=== PATIENT | female | born 1995 | race Caucasian/White ===

== ENCOUNTER 2017-12-14 02:59 | Emergency (ER) | payer OTHER ==
[~2017-12-14] VITALS: Ht 165.1 cm; Wt 70.8 kg
[2017-12-14 03:02] VITALS: TEMP 36.8; Ht 165.1 cm; Wt 70.8 kg
[2017-12-14] MEDS ORDERED: SODIUM CHLORIDE 0.9% 1000ML 1,000 ML IV STA (03:22)
[2017-12-14] MEDS ORDERED: DEXAMETHASONE **PF** INJ 10 MG/ML VIAL IV ONE (03:30)
[2017-12-14] MEDS ORDERED: DIAZEPAM INJ 5 MG/ML 2 ML CARP IV ONE (03:30)
[2017-12-14] MEDS ORDERED: DIAZEPAM 5 MG/ML INJ 10ML VIAL ONE (03:30)
[2017-12-14 03:54] LABS: BASO % 0.3 %; BASO ABS # 0.03 K/uL (0-0.2); EOS % 3.5 %; EOS ABS # 0.35 K/uL (0-0.5); HEMATOCRIT 36.9 % (37-47); HEMOGLOBIN 12.3 g/dL (12.0-16.0); IG# 0.01 K/uL (0.00-0.02); LYMPH % 20.2 %; LYMPH ABS # 2.02 K/uL (1.2-3.4); MEAN CELL VOLUME 84.4 fL (80-100); MEAN CORPUSCULAR HEMOGLOBIN 28.1 pg (25-34); MEAN CORPUSCULAR HGB CONC 33.3 g/dl (32-36); MEAN PLATELET VOLUME 9.5 fL (7.4-10.4); NEUT % 69.9 %; PLATELET COUNT 228 K/uL (130-400); RED CELL DISTRIBUTION WIDTH CV 15.2 % (11.5-14.5); RED CELL DISTRIBUTION WIDTH SD 47.2 fL (36.4-46.3); WHITE BLOOD COUNT 10.01 K/uL (4.8-10.8)
[2017-12-14 04:07] VITALS: O2SAT 98
[2017-12-14 04:22] LABS: ALBUMIN 3.3 gm/dl (3.4-5.0); ALKALINE PHOSPHATASE 45 U/L (45-117); ALT/SGPT 16 U/L (12-78); AST/SGOT 12 U/L (15-37); BLOOD UREA NITROGEN 19 mg/dl (7-18); CALCIUM 8.2 mg/dl (8.5-10.1); CARBON DIOXIDE 26 mmol/L (21-32); CREATININE 0.76 mg/dl (0.60-1.20); GLUCOSE 96 mg/dl (70-99); POTASSIUM 3.9 mmol/L (3.5-5.1); SODIUM 137 mmol/L (136-145)
--- NOTE | 2017-12-14 04:54 | EMERGENCY ROOM VISIT NOTE ---
History First contact with patient: 03:08 Chief Complaint: NECK PAIN Stated Complaint: NECK PAIN,SWEATING,HARD TO BREATHE History of Present Illness The patient is a 22 year old female who presents to the Emergency Room with complaints of waking up with neck pain tonight and then going to the kitchen to get some water and had severe pain and briefly passed out. Patient states she woke up with neck pain. She describes the pain is tension, ranging in severity 8 out of 10 to the paraspinal muscle region area. Patient states that she did get sweaty prior to the syncopal episode and was in moderate amount of pain. Patient denies chest pain, current dyspnea, abdominal pain, nausea, vomiting, diarrhea, leg pain or swelling, recent illness. Patient does have iron deficiency anemia and takes iron supplements. No injury to the area. No radiculopathy. Review of Systems An 10 system review of systems was completed with positives and pertinent negatives listed in the HPI. Past Medical/Surgical History Iron deficiency anemia Social History Smoking Status: Never Smoker Alcohol Use: none Drug Use: none Marital Status: single Housing Status: lives with roommate Occupation Status: employed Current/Historical Medications No Active Prescriptions or Reported Meds Physical Exam Vital Signs Date Time Temp Pulse Resp B/P (MAP) Pulse Ox O2 Delivery O2 Flow Rate FiO2 12/14/17 04:22 70 16 109/62 98 Room Air 12/14/17 04:07 98 Room Air 12/14/17 04:04 63 12/14/17 04:01 66 19 115/54 100 Room Air 65 93/52 63 93/56 12/14/17 03:02 36.8 69 18 111/74 100 Room Air Physical Exam VITALS: Vitals are noted on the nurse's note and reviewed by myself. Vital signs stable. GENERAL: Pleasant female anxious appearing, in no acute distress, nondiaphoretic , well-developed well-nourished. SKIN: The skin was without rashes, erythema, edema, or bruising. There is no tenting of the skin. Capillary reflex less than 2 seconds. HEAD: Normocephalic atraumatic. EARS: External auditory canals clear, tympanic membranes pearly saldivar without erythema or effusion bilaterally. EYES: Pupils equal round and reactive to light and accommodation. Conjunctivae without injection, sclerae without icterus. Extraocular movements intact. NOSE: Patent, turbinates without inflammation or discharge. MOUTH: Mucous membranes moist. Pharynx without erythema or exudate. Uvula midline. Airway patent. Tongue does not deviate. NECK: Supple without nuchal rigidity. No lymphadenopathy. No thyromegaly. Cervical spine is nontender. No JVD. Bilateral paraspinal muscles tender to palpation easily reproducing symptoms. HEART: Regular rate and rhythm without murmurs gallops or rubs. LUNGS: Clear to auscultation bilaterally without wheezes, rales or rhonchi. No retractions or accessory muscle use. ABDOMEN: Positive bowel sounds x 4. Normal tympanic percussion. Soft, nontender, without masses or organomegaly. Pavon sign negative. No guarding or rebound tenderness. No CVA tenderness MUSCULOSKELETAL: No muscle atrophy, erythema, or edema noted. NEURO: Patient was alert and oriented to person place and time. Normal sensation to light and sharp touch. No focal neurological deficits. Cranial nerves II through XII grossly intact. No prior drift. Cerebellar exam intact. Medical Decision & Procedures Laboratory Results 12/14/17 03:35 Red Blood Count 4.37, Mean Corpuscular Volume 84.4, Mean Corpuscular Hemoglobin 28.1, Mean Corpuscular Hemoglobin Concent 33.3, Mean Platelet Volume 9.5, Neutrophils (%) (Auto) 69.9, Lymphocytes (%) (Auto) 20.2, Monocytes (%) (Auto) 6.0, Eosinophils (%) (Auto) 3.5, Basophils (%) (Auto) 0.3, Neutrophils # (Auto) 7.00, Lymphocytes # (Auto) 2.02, Monocytes # (Auto) 0.60, Eosinophils # (Auto) 0.35, Basophils # (Auto) 0.03 12/14/17 03:35 Test 12/14/17 03:26 12/14/17 03:35 Urine Color YELLOW Urine Appearance CLEAR (CLEAR) Urine pH 7.5 (4.5-7.5) Urine Specific Criders 1.021 (1.000-1.030) Urine Protein NEG (NEG) Urine Glucose (UA) NEG (NEG) Urine Ketones NEG (NEG) Urine Occult Blood NEG (NEG) Urine Nitrite NEG (NEG) Urine Bilirubin NEG (NEG) Urine Urobilinogen NEG (NEG) Urine Leukocyte Esterase NEG (NEG) Urine WBC (Auto) 1-5 /hpf (0-5) Urine RBC (Auto) 5-10 /hpf (0-4) Urine Hyaline Casts (Auto) 1-5 /lpf (0-5) Urine Epithelial Cells (Auto) >30 /lpf (0-5) Urine Bacteria (Auto) NEG (NEG) White Blood Count 10.01 K/uL (4.8-10.8) Red Blood Count 4.37 M/uL (4.2-5.4) Hemoglobin 12.3 g/dL (12.0-16.0) Hematocrit 36.9 % (37-47) Mean Corpuscular Volume 84.4 fL (80-100) Mean Corpuscular Hemoglobin 28.1 pg (25-34) Mean Corpuscular Hemoglobin Concent 33.3 g/dl (32-36) Platelet Count 228 K/uL (130-400) Mean Platelet Volume 9.5 fL (7.4-10.4) Neutrophils (%) (Auto) 69.9 % Lymphocytes (%) (Auto) 20.2 % Monocytes (%) (Auto) 6.0 % Eosinophils (%) (Auto) 3.5 % Basophils (%) (Auto) 0.3 % Neutrophils # (Auto) 7.00 K/uL (1.4-6.5) Lymphocytes # (Auto) 2.02 K/uL (1.2-3.4) Monocytes # (Auto) 0.60 K/uL (0.11-0.59) Eosinophils # (Auto) 0.35 K/uL (0-0.5) Basophils # (Auto) 0.03 K/uL (0-0.2) RDW Standard Deviation 47.2 fL (36.4-46.3) RDW Coefficient of Variation 15.2 % (11.5-14.5) Immature Granulocyte % (Auto) 0.1 % Immature Granulocyte # (Auto) 0.01 K/uL (0.00-0.02) Anion Gap 6.0 mmol/L (3-11) Est Creatinine Clear Calc Drug Dose 114.6 ml/min Estimated GFR () 129.1 Estimated GFR (Non- 111.3 BUN/Creatinine Ratio 24.8 (10-20) Calcium Level 8.2 mg/dl (8.5-10.1) Total Bilirubin 0.2 mg/dl (0.2-1) Direct Bilirubin < 0.1 mg/dl (0-0.2) Aspartate Amino Transf (AST/SGOT) 12 U/L (15-37) Alanine Aminotransferase (ALT/SGPT) 16 U/L (12-78) Alkaline Phosphatase 45 U/L (45-117) Total Protein 7.0 gm/dl (6.4-8.2) Albumin 3.3 gm/dl (3.4-5.0) Thyroid Stimulating Hormone (TSH) 5.770 uIu/ml (0.300-4.500) Human Chorionic Gonadotropin, Qual NEG (NEG) Medications Administered Medications (Trade) Dose Ordered Sig/Teressa Route Start Time Stop Time Status Last Admin Dose Admin Dexamethasone Sodium Phosphate (Dexamethasone Inj Pf) 10 mg NOW ONCE IV 12/14/17 03:30 12/14/17 03:31 DC 12/14/17 04:09 10 MG Sodium Chloride 1,000 ml @ 999 mls/hr Q1H1M STAT IV 12/14/17 03:22 12/14/17 04:22 DC 12/14/17 04:09 999 MLS/HR Diazepam (Valium Inj) 5 mg STK-MED ONCE .ROUTE 12/14/17 03:30 12/14/17 03:31 DC 12/14/17 04:08 5 MG ED Course Prior records/ancillary studies reviewed. Triage Nursing notes reviewed. Additional history obtained from friend The patient's history was concerning for neck pain and syncope. Differential diagnosis: Etiologies such as strain, sprain, spasm, fracture, vasovagal event, infection, hypoglycemia, electrolyte abnormalities, cardiac sources, intracerebral event, toxicologic, neurologic, as well as others were entertained. Physical examination: Patient is alert, interactive and well-appearing ER treatment provided: IV hydration with normal saline Positive orthostatics. On reassessment the patient felt better. Diagnostics interpretation by me: ECG: Normal sinus, normal intervals, no acute ST-T wave changes. Impression normal sinus rhythm interpreted by myself I think arrhythmia is unlikely. EKG shows normal sinus rhythm with no interval abnormalities such as QT prolongation or WPW. There are no findings to suggest Brugada syndrome. Cardiac monitoring in the emergency department reveals no tachycardic or bradycardic dysrhythmia. Hypertrophic cardiomyopathy was considered but there are no clear historical elements pointing toward this. EKG is not suggestive. The QRS voltage is not extremely large and there are no suggestive Q waves. The labs revealed stable H&H. Slightly elevated TSH. Negative hCG. Imaging studies: CT HEAD: FINDINGS: No intracranial hemorrhage, abnormal intra- or extra-axial collections or parenchymal lesions are seen. The shape and configuration of the cortical sulci, basal cisterns and ventricles are within normal limits. The gillette-white differentiation is preserved. No evidence of mass effect, midline shift, or edema. The osseous structures are unremarkable. The visualized portions of the paranasal sinuses are clear. IMPRESSION: Normal non-contrast CT scan of the head. CT C SPINE: FINDINGS: No fracture or subluxations are noted. The vertebral body heights, disc spaces and alignment are preserved. No prevertebral soft tissue swelling. IMPRESSION: Normal CT scan of the cervical spine. Radiologist: Umesh Headley MD This appears to be consistent with syncopal episode most likely from overstimulation from the pain in her neck. Patient was neurovascularly and neurologically intact. She is well-appearing. She had no deficits on exam. I believe the syncopal episode was from the pain that she had in her neck. She did have prodromal symptoms prior to the syncopal episode. Patient had unremarkable workup as above. She is advised to follow-up with family care in a few days or here in the ER sooner for chest pain, difficulty breathing, numbness, tingling, syncope, worsening signs or symptoms or as needed. By the evaluation outlined above emergent etiologies such as infection, hypoglycemia, electrolyte abnormalities, cardiac sources, intracerebral event, toxicologic, neurologic,as well as others were deemed relatively unlikely. The pt informed about the findings as listed above. All questions were answered and pleased with the treatment. Return instructions were outlined and the patient was discharged in stable condition. Referral: The patient was referred back to their primary care physician for follow-up in 2 to 3 days for a recheck of the current condition. Case reviewed with my attending The chart was completed utilizing [employer] voice recognition software. Grammatical errors, random word insertions, pronoun errors, and incomplete sentences are an occassional consequence of this system due to software limitations, ambient noise, and hardware issues. Any formal questions or concerns about the content, text, or information contained within the body of this dictation should be directly addressed to the physician automotive parts counter assistant for clarification. Medical Decision As above Head Trauma GCS Score: 15 Medication Reconcilliation Current Medication List: was personally reviewed by me Blood Pressure Screening Patient's blood pressure: Normal blood pressure Impression Primary Impression: Neck pain Additional Impression: Syncope Departure Information Dispostion Home / Self-Care Condition GOOD Prescriptions No Active Prescriptions or Reported Meds Referrals No Doctor, Assigned (PCP) Patient Instructions My [facility] [place] Additional Instructions DO NOT drive, drink alcohol, operate machinery, or perform dangerous activities today. You were given medications in the ER that can affect your ability to safely function or operate a vehicle. 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 This may show positive on a drug screen. Recommend yoga and/or Pilates for back pain to help strengthen uo your core. Recommend physical therapy to help strengthen up your core. Recommend a healthy weight. Ibuprofen(Motrin, Advil) may be used for fever or pain. Use 600mg every six hours as needed. Take with food. Avoid using more than 2400mg in a 24 hour period. Do not use 2400mg per day for more than three consecutive days without physician direction. Prolonged inappropriate use can lead to stomach upset or ulcers. This medication can be taken if you need to drive, work, or perform activities which may be dangerous when taking narcotic pain medication. (AND/OR) Acetaminophen(Tylenol) may be used for fever or pain. Use 1000mg every six hours as needed. Avoid using more than 3000mg in a 24 hour period. This medication can be taken if you need to drive, work, or perform activities which may be dangerous when taking narcotic pain medication. Rest and avoid heavy lifting until your symptoms resolve and then gradually return to full activity. A good rule of thumb is if it hurts your neck to perform a certain activity, then it should be avoided until you are healthy again. A heating pad, warm compresses, or a hot shower may help with tight muscles and can be done several times a day as needed. Continue current medications. Return to the ER immediately for any syncope, chest pain, weakness, numbness, tingling, severe pain, loss of control of your bowels or bladder, inability to walk, or as needed. Follow up with your primary care physician within 3-5 days for a recheck of your current condition and for further workup for your syncopal episode tonight. Problem Qualifiers
[2017-12-14 05:10] VITALS: BP 106/66; PULSE 62; O2SAT 100
--- NOTE | 2017-12-14 06:30 | DIAGNOSTIC IMAGING REPORT ---
HEAD WITHOUT CONTRAST (CT) CLINICAL HISTORY: 22 years-old Female with syncope/neck pain. Acute headache with syncope TECHNIQUE: Multiple axial CT images of the head were obtained without contrast. A dose lowering technique was utilized adhering to the principles of ALARA. COMPARISON: CT cervical spine of same day. FINDINGS: No acute intracranial hemorrhage, midline shift, intracranial mass, hydrocephalus, territorial ischemia or abnormal extra-axial collection. The calvarium is intact. Mastoid air cells and middle ear cavities are clear. Mild mucosal thickening of the ethmoid air cells. Soft tissues and orbits are unremarkable. IMPRESSION: No acute intracranial abnormality. The above report was generated using voice recognition software. It may contain grammatical, syntax or spelling errors. Electronically signed by: Jose D Gonzalez M.D. 12/14/2017 6:29 AM Dictated Date/Time: 12/14/2017 6:27 AM
--- NOTE | 2017-12-14 06:34 | DIAGNOSTIC IMAGING REPORT ---
CT OF THE CERVICAL SPINE CLINICAL HISTORY: Syncope. Neck pain. COMPARISON STUDY: No previous studies for comparison. CT DOSE: 987.53 mGy.cm TECHNIQUE: CT scan of the cervical spine was performed from the skull base to the thoracic inlet. Images are reviewed in the axial, sagittal, and coronal planes. IV contrast was not administered for this examination. A dose lowering technique was utilized adhering to the principles of ALARA. FINDINGS: The visualized portions of the lung apices reveal no evidence of pneumothorax. The prevertebral soft tissues are normal. No fractures or subluxations are visualized. There is a slight reversal of normal cervical lordosis, likely secondary to positioning or muscle spasm. No destructive lesions are visualized. IMPRESSION: Slight reversal the normal cervical lordosis. Otherwise normal CT scan of the cervical spine. Electronically signed by: Daryl Koehler M.D. 12/14/2017 6:33 AM Dictated Date/Time: 12/14/2017 6:31 AM
== END 2017-12-14 05:12 | disposition home or self-care (01) ==
LOC: C.EDB 03:01
DX: M54.2 Cervicalgia (principal); R55 Syncope and collapse; R61 Generalized hyperhidrosis; D50.9 Iron deficiency anemia, unspecified

== ENCOUNTER 2017-12-20 17:03 | Emergency (ER) | payer OTHER ==
[~2017-12-20] VITALS: Ht 165.1 cm; Wt 70.4 kg
[2017-12-20 17:12] VITALS: TEMP 37.1; Ht 165.1 cm; Wt 70.4 kg
[2017-12-20] MEDS ORDERED: ACETAMINOPHEN 500 MG TAB PO STA (17:25)
[2017-12-20] MEDS ORDERED: IBUPROFEN 800 MG TAB PO STA (17:25)
--- NOTE | 2017-12-20 17:32 | EMERGENCY ROOM VISIT NOTE ---
History Report prepared by Migue: Cristofer Ureña Under the Supervision of: Dr. Armin Fong M.D. First contact with patient: 17:15 Chief Complaint: LEG PAIN,LEG INJURY Stated Complaint: SEVERE LEFT LEG PAIN History of Present Illness The patient is a 22 year old female who presents to the Emergency Room with complaints of intermittent left left leg pain that began a week and a half ago after finishing a run. Patient states the pain started at the top of her calf "internally" and has since radiated up her leg and down to her foot. She states the pain does not feel like a pulled muscle but is "in her veins". She adds she has been experiencing intermittent numbness in her left foot. Patient states the pain resided after a couple of days of ice and Motrin. She states the pain then came back after she did kick boxing for 3 days. Patient states she called her PCP who referred her to the ER due to concern for a blood clot cause she takes control. Past medical history includes a pulled muscle. Patient states her last Motrin was 7 hours ago. Patient states she runs 3x a week for a a minimum of 2.5 miles. Patient denies abdominal pain, fevers, chest pain, SOB, nausea, chills, diarrhea, congestion, long car/plane rides, or recent surgeries. Patient states she is starting with the [employer] in a couple of months. Source of History: patient Onset: Week and a half ago Position: leg (left) Timing: intermittent Modifying Factors (Relieving): ice, other (Motrin) Associated Symptoms: + numbness, No fevers, No chills, No chest pain, No SOB , No nausea, No abdominal pain, No diarrhea Note: Negative congestion. Review of Systems See HPI for pertinent positives and negatives. A total of ten systems were reviewed and were otherwise negative. Past Medical & Surgical Medical Problems: (1) Pulled muscle Family History Patient reports no known family medical history. Social History Smoking Status: Never Smoker Alcohol Use: none Drug Use: none Marital Status: single Housing Status: lives with roommate Occupation Status: employed Current/Historical Medications Scheduled Apixaban (Eliquis), 0 PO BID Control Pills ( Control Pills), 1 TAB PO DAILY Scheduled PRN Ibuprofen (Advil), 400-600 MG PO Q6H PRN for Pain Allergies Coded Allergies: No Known Allergies (Unverified , 12/14/17) Physical Exam Vital Signs Date Time Temp Pulse Resp B/P (MAP) Pulse Ox O2 Delivery O2 Flow Rate FiO2 12/20/17 20:45 74 16 105/94 98 Room Air 12/20/17 18:37 69 18 112/53 98 Room Air 12/20/17 17:12 37.1 66 20 112/58 100 Room Air Physical Exam GENERAL: Awake, alert, well-appearing, in no distress HENT: Normocephalic, atraumatic. Oropharynx unremarkable. [Mucous membranes are dry.] EYES: Normal conjunctiva. Sclera non-icteric. NECK: Supple. No nuchal rigidity. FROM. No JVD. RESPIRATORY: Clear to auscultation. CARDIAC: Regular rate, normal rhythm. Extremities warm and well perfused. Pulses equal. ABDOMEN: Soft, non-distended. No tenderness to palpation. No rebound or guarding. No masses. RECTAL: Deferred. MUSCULOSKELETAL: Chest examination reveals no tenderness. The back is symmetrical on inspection without obvious abnormality. There is no CVA tenderness to palpation. No joint edema. LOWER EXTREMITIES: Mild left calf discomfort with no discrete tenderness. Full range of motion. PMS intact. No edema. No discoloration. NEURO: Normal sensorium. No sensory or motor deficits noted. SKIN: No rash or jaundice noted. Medical Decision & Procedures ER Provider Diagnostic Interpretation: Radiology results as stated below per my review and radiologist interpretation: L VENOUS DOPP LOWER EXT UNILAT CLINICAL HISTORY: pain, on OCPs pain. Edema. TECHNIQUE: Venous Doppler COMPARISON STUDY: None FINDINGS: Findings consistent with acute deep venous thrombosis of the posterior tibial veins. There is also involvement while one of the peroneal veins. No evidence of deep venous thrombosis superior to the knee. IMPRESSION: 1. Acute deep venous thrombosis of several veins inferior to the knee. 2. No evidence for involvement superior to the knee. The above report was generated using voice recognition software. It may contain grammatical, syntax or spelling errors. Electronically signed by: Lacho Hernandez M.D. 12/20/2017 6:01 PM Medications Administered Medications (Trade) Dose Ordered Sig/Teressa Route Start Time Stop Time Status Last Admin Dose Admin Ibuprofen (Motrin Tab) 800 mg NOW STAT PO 12/20/17 17:25 12/20/17 17:27 DC 12/20/17 17:30 800 MG Acetaminophen (Tylenol Tab) 1,000 mg NOW STAT PO 12/20/17 17:25 12/20/17 17:27 DC 12/20/17 17:31 1,000 MG Apixaban (Eliquis) 10 mg NOW STAT PO 12/20/17 20:31 12/20/17 20:33 DC 12/20/17 21:12 10 MG Apixaban (Eliquis) 10 mg NOW STAT PO 12/20/17 20:43 12/20/17 20:47 DC 12/20/17 21:10 10 MG ED Course 1710: The patient was evaluated in room B10. A complete history and physical exam was performed. 2008: I reevaluated the patient and updated her on her findings. 2101: I reevaluated the patient. Discussed results and discharge instructions. She verbalized understanding and agreement. The patient is ready for discharge. Medical Decision I reviewed the patient's past medical history, medications, and the nursing notes as described above. Differential diagnosis: Etiologies such as DVT, musculoskeletal, infection, joint effusion, trauma, lymphedema, idiopathic, CHF, as well as others were entertained. The patient is a 20-year-old woman who presents emergency department with left calf pain that has been persisting over the past week the setting of being on OCPs for contraception and menstrual cycle regulation per hpi. On arrival the patient is well-appearing in no acute distress, afebrile stable vital signs. On exam patient has mild discomfort in the left calf without discrete tenderness. There is no significant edema, erythema, or warmth. Distal PMS intact. Duplex of the left lower extremity demonstrates distal DVTs in the posterior tibial vein as well as the peroneal vein. Had an extensive conversation with the patient regarding the approach to these types of DVTs which are below the knee. Given she is on OCPs her DVT is most likely provoked. Moreover, considering she is otherwise healthy patient, it is reasonable to defer anticoagulation given the location of these distal DVTs. However, the duration thrombotic risk is unclear at this time and so we agreed to discontinue her OCPs and initiate anticoagulation with Eliquis until she is reevaluated by her provider at home and has repeat ultrasounds to further inform the decision of whether or not continued anticoagulation is necessary. Bleeding risks explained, including avoidance of NSAIDS and activities such as kickboxing. Of note, this finding is also in the setting that the patient is pending entry into [employer] school and so she is also coordinating with their medical clearance physician regarding their recommendations. Findings and plan for follow-up reviewed with patient. Patient agreeable and d/c'd per discharge instructions. Medication Reconcilliation Current Medication List: was personally reviewed by me Blood Pressure Screening Patient's blood pressure: Normal blood pressure Blood pressure disposition: Did not require urgent referral Impression Primary Impression: Left peroneal vein thrombosis Additional Impression: Acute DVT of left tibial vein Scribe Attestation The scribe's documentation has been prepared under my direction and personally reviewed by me in its entirety. I confirm that the note above accurately reflects all work, treatment, procedures, and medical decision making performed by me. Departure Information Dispostion Home / Self-Care Prescriptions Apixaban (ELIQUIS) 5 Mg Tab 0 PO BID for 30 Days, #70 TAB 10 mg(2 tablets) twice daily for 7 days followed by 5 mg(1 tablet) twice daily. Prov: Armin Fong M.D. 12/20/17 Referrals No Doctor, Assigned (PCP) Patient Instructions ED DVT, My [facility] Additional Instructions Please follow up with your primary care physician in the next 1-3 days for re- evaluation and to discuss your plan for continued anticoagulation given that your blood clots were likely provoked by your oral contraception and are located in your left posterior tibial and peroneal veins below your knee. The approach to the treatment of blood clots below your knee is variable. There is ample agreement that in patients who do not have concerning risk factors and have had the provocation for their below-knee (distal) DVT removed, anticoagulation may not be required so long as a repeat ultrasounds every two weeks are performed to ensure the DVT resolves and/or does not worsen. Discontinue your current oral contraception (OCP). Given the clot-promoting effect after discontinuation of OCPs is unclear we will begin anticoagulation with Eliquis. If OCPs are discontinued for 4 weeks and repeat ultrasound shows resolution, than it could be reasonable to discontinue anticoagulation at that time if your providers are in agreement. You should also discuss with your controlled area checker alternative options for contraception that are progesterone based, which do not carry the risk of blood clots. Return to the emergency department for worsening symptoms as described in the accompanying instructions. Problem Qualifiers
[2017-12-20] MEDS ORDERED: BCPILLS PO (17:41)
[2017-12-20] MEDS ORDERED: IBUP-1050 PO (17:41)
--- NOTE | 2017-12-20 18:03 | DIAGNOSTIC IMAGING REPORT ---
L VENOUS DOPP LOWER EXT UNILAT CLINICAL HISTORY: pain, on OCPs pain. Edema. TECHNIQUE: Venous Doppler COMPARISON STUDY: None FINDINGS: Findings consistent with acute deep venous thrombosis of the posterior tibial veins. There is also involvement while one of the peroneal veins. No evidence of deep venous thrombosis superior to the knee. IMPRESSION: 1. Acute deep venous thrombosis of several veins inferior to the knee. 2. No evidence for involvement superior to the knee. The above report was generated using voice recognition software. It may contain grammatical, syntax or spelling errors. Electronically signed by: Lacho Hernandez M.D. 12/20/2017 6:01 PM Dictated Date/Time: 12/20/2017 6:00 PM
[2017-12-20] MEDS ORDERED: APIXABAN 5 MG TAB PO STA ×2 (20:31→20:43)
[2017-12-20] MEDS ORDERED: APIXABAN 2.5 MG TAB PO STA (20:31)
[2017-12-20] MEDS ORDERED: APIX1TAB3 PO ×3 (20:35→20:59)
[2017-12-20 20:45] VITALS: BP 105/94; PULSE 74; O2SAT 98
[2017-12-21] MEDS ORDERED: APIXABAN 5 MG TAB PO SCH (09:00)
[2017-12-21] MEDS ORDERED: APIXABAN 5 MG TAB PO ONE (09:00)
== END 2017-12-20 21:21 | disposition home or self-care (01) ==
LOC: C.EDB 17:04
DX: I82.442 Acute embolism and thrombosis of left tibial vein (principal); Z79.3 Long term (current) use of hormonal contraceptives